=== PATIENT | female | born 1985 | race Caucasian/White ===

== ENCOUNTER 2016-12-09 16:39 | Emergency (ER) | payer OTHER ==
[~2016-12-09] VITALS: Ht 160 cm; Wt 68.0 kg
[2016-12-09 16:51] VITALS: BP 109/60
--- NOTE | 2016-12-09 18:08 | PHYS DOC ---
General Chief Complaint: KNEE INJURY Stated Complaint: LEFT KNEE PAIN Time Seen by MD: 17:55 Source: patient Exam Limitations: no limitations Problems: History of Present Illness Initial Comments Patient is a 31-year-old female who comes to the ED complaining of left knee pain. Patient states that she was walking and accidentally bumped in to a trailer hitch with her left patella. She complains of severe pain at the knee. She is ambulatory with discomfort she did not twist her knee or feel any pops. She is able to flex and extend actively at the knee with discomfort. No numbness tingling weakness or radiating symptoms patient says she's had 2 knee surgeries on that prior. Pain is described as sharp and throbbing, severe worse with movement better with rest. No pre-arrival treatment. Onset: just prior to arrival Severity: severe Pain/Injury Location: left knee Method of Injury: direct blow Modifying Factors: worse with jarring, worse with movement, improves with pain medication, improves with rest Allergies: Coded Allergies: amoxicillin (Verified Allergy, Unknown, 08/30/15) Past Medical History Medical History: other (anxiety, migraines) Surgical History: noncontributory (tubal ligation) Social History Smoker: non-smoker Alcohol: occasionally Drugs: none Review of Systems Constitutional: denies chills, denies fever Respiratory: denies cough, denies shortness of breath Cardiovascular: denies chest pain, denies palpitations Gastrointestinal: denies nausea, denies vomiting Musculoskeletal: see HPI Psychiatric/Neurological: see HPI Physical Exam General Appearance: WD/WN, moderate distress HEENT: normal ENT inspection Neck: non-tender, supple Cardiovascular/Respiratory: normal peripheral pulses, no respiratory distress Back: no CVA tenderness, no vertebral tenderness Knees: left knee other (exquisite tenderness at the patella, no palpable bony deformity noted. There is a small knee effusion collateral ligaments are intact Lockman not tested due to patient discomfort. No joint line tenderness.) Neurologic/Tendon: normal sensation, normal motor functions, normal tendon functions, responds to pain Psychiatric: alert, oriented x 3 Skin: warm/dry (left patella there are no skin breaks there is some mild swelling and early bruising) Orders, Labs, Meds Left knee: There is calcified patellar tendon versus tibial avulsion deformity, no definite fractures on the lateral view of the patella, poor technique with overlying structures from the AP view. Given the severity of the patient's discomfort and questionable abnormalities on radiographs will treat as acute fracture of the patella. Patient received some symptomatic relief both from oral pain meds and from the knee immobilizer. Neurovascularly intact after knee immobilizer was placed. I discussed the treatment plan in detail with the patient as well as close follow- up for radiology report and further evaluation and treatment if necessary. Patient expressed agreement and understanding of the treatment plan Departure Time of Disposition: 18:03 Disposition: 01 HOME, SELF-CARE Diagnosis: left knee pain/trauma Condition: STABLE Patient Instructions: Knee - Patella Problems, RICE - Routine Care for Injuries , [id number] Additional Instructions: As discussed I see some abnormalities on your knee films which could represent avulsion fracture. We will treat as a fracture while awaiting radiology report and follow-up evaluation. RICE, see handout. Nonweight bearing crutches only. Wear knee immobilizer except when bathing. OTC ibuprofen for baseline pain. Rx: norco 7.5mg #20 Take pain meds with food to avoid nausea and GI upset. Increase fluid intake and take OTC stool softeners to avoid opiate associated constipation. Follow up with your doctor Sunday for recheck and radiology report, further evaluation if necessary. Return to ED with new or changing symptoms. MARTHA BADILLO DO Dec 09, 2016 18:08
[2016-12-09] MEDS ORDERED: HYDR-965 PO (18:09)
[2016-12-09] MEDS ORDERED: oxyCODONE/APAP 10/325 1 TAB TABLET PO ONE (18:15)
[2016-12-09] MEDS ORDERED: ONDANSETRON ODT 4 MG TAB.RAPDIS PO ONE (18:15)
--- NOTE | 2016-12-10 08:36 | RAD ---
Left knee radiograph 12/09/2016 at 1705 hours Indication: Left knee pain, trauma Comparison: None available Technique: 3 views of the left knee are provided. Findings: There is no acute fracture or dislocation. Joint spaces are maintained. Bone mineralization is within normal limits. Mild edema within the suprapatellar space. The tibial tubercle is fragmented, however well corticated. Impression: 1. No acute fracture or dislocation. 2. Mild edema involving the suprapatellar space.
== END 2016-12-09 18:35 | disposition home or self-care (01) ==
LOC: ER 16:39
DX: M25.562 Pain in left knee (principal); G43.909 Migraine, unspecified, not intractable, without status migrainosus; Z88.1 Allergy status to other antibiotic agents; W22.8XXA Striking against or struck by other objects, initial encounter; Y93.01 Activity, walking, marching and hiking; Y92.89 Other specified places as the place of occurrence of the external cause; Y99.8 Other external cause status
CPT/HCPCS: 29505; 73562; 99284; Q0162